=== PATIENT | male | born 1970 | race Caucasian/White ===

== ENCOUNTER 2022-11-29 14:04 | Emergency (ER) | payer OTHER ==
[~2022-11-29] VITALS: Ht 170.2 cm; Wt 93.0 kg
[2022-11-29 14:22] VITALS: BP 125/80
== END 2022-11-29 15:54 | disposition home or self-care (01) ==
LOC: ER 14:04
DX: M54.2 Cervicalgia (principal); M25.561 Pain in right knee; M25.571 Pain in right ankle and joints of right foot; R11.0 Nausea; V49.3XXA Car occupant (driver) (passenger) injured in unspecified nontraffic accident, initial encounter; Z88.0 Allergy status to penicillin; Z91.030 Bee allergy status
CPT/HCPCS: 73562-RT; 99284-25; A9270